=== PATIENT | female | born 1950 | race Caucasian/White ===

== ENCOUNTER 2017-12-27 17:23 | Inpatient (IN) ==
[2017-12-27 17:50] LABS: Bilirubin,Urine Negative (Negative); Blood,Urine Negative (Negative); Clarity,Urine Clear (Clear); Color,Urine Yellow (Yellow); Glucose,Urine (UA) Normal (Normal); Ketones,Urine Negative (Negative); Leukocyte Esterase,Urine Trace (Negative); Nitrite,Urine Negative (Negative); Protein,Urine Negative (Neg-Trace); Urobilinogen,Urine Normal (Normal)
[2017-12-27 17:51] LABS: Basophils # 0.1 K/mcL (0.0-0.2); Basophils % 0.5 %; Eosinophils # 0.1 K/mcL (0.0-0.6); Eosinophils % 0.9 %; Hematocrit 51.4 % (35.3-44.9); Hemoglobin 17.4 g/dL (11.5-15.4); Immature Granulocytes % 0.4 % (0-4); Lymphocytes # 3.1 K/mcL (0.6-4.6); Lymphocytes % 27.7 %; Mean Corpuscular HGB Conc 33.9 g/dL (31.6-35.5); Mean Corpuscular Hemoglobin 31.8 pg (28.0-33.3); Mean Corpuscular Volume 93.8 fL (83.0-100.0); Mean Platelet Volume 10.7 fL (9.4-12.4); Monocytes % 8.9 %; Neutrophils # 6.8 K/mcL (1.6-8.9); Platelet Count 258 K/mcL (140-400); Red Blood Count 5.48 M/mcL (3.82-4.97); Red Cell Distribution Width 15.2 % (11.5-14.5); Segmented Neutrophils % 61.6 %
[2017-12-27 17:53] LABS: Bacteria,Urine None Seen per hpf (None-Few); Hyaline Casts,Urine None Seen per lpf (None-Few); RBC,Urine 0-3 per hpf (0-3); Squamous Epithelial Cell,Urine Many per lpf (None-Few); WBC,Urine 0-3 per hpf (0-3)
[2017-12-27 17:56] LABS: Prothrombin Time 10.7 Seconds (9.4-12.1)
[2017-12-27 17:58] LABS: Activated Partial Thrombo Time 35.7 Seconds (26.0-36.0)
--- NOTE | 2017-12-27 18:03 | Emergency Department Note ---
Disposition Clinical Impression: Cerebrovascular accident Qualifiers: CVA mechanism: unspecified Qualified Code(s): I63.9 - Cerebral infarction, unspecified Disposition: Admitted As Inpatient Condition: Good Forms: ED Satisfaction Letter Time of Disposition: 18:17 General Adult HPI - General Chief complaint: ED Neuro Symptoms/Deficit Stated complaint: Stroke symtoms Time Seen by Provider: 12/27/17 17:26 Source: patient, family Mode of arrival: ambulatory Limitations: no limitations Nursing Notes Reviewed: Yes Vital Signs Reviewed: Yes - History of Present Illness HPI Narrative: Patient presents to the ED in with the chief complaint of a stroke. 48 hours ago the patient started developing expressive aphasia and a pressure in her bilateral temples. Saw her primary care physician who ordered an outpatient MRI. Patient went to MRI today and got sent over for an acute CVA. No previous history of CVA. No history of A. fib. Is not on any anticoagulants, aspirin or Plavix. She does have one stent in her heart and was on aspirin previously, but was discontinued one year ago by her physician. She does smoke. States that she does not have any numbness or weakness in her arms or legs. No difficulty walking. Chest chronic dizziness from vertigo and no change from this. States she feels okay otherwise. She is just having a lot of trouble getting her words out. Pain Scale: 0 - Related Data Home Medications Medication Instructions Recorded Confirmed Albuterol Sulfate 2.5 mg IH TID PRN 08/31/17 08/31/17 Amlodipine Besylate 5 mg PO DAILY 08/31/17 08/31/17 Aspirin 81 mg PO DAILY 08/31/17 08/31/17 Cyclobenzaprine HCl 5 mg PO BID 08/31/17 08/31/17 Lisinopril 20 mg PO BID 08/31/17 08/31/17 Metoprolol Tartrate 50 mg PO BID 08/31/17 08/31/17 Symbicort 160/4.5 4.5 mcg IH BID 08/31/17 08/31/17 Previous Rx's Medication Instructions Recorded Clindamycin [Cleocin] 150 mg PO Q6HR #7 capsule 08/31/17 Ibuprofen [Motrin] 600 mg PO Q8HR #20 tab 08/31/17 OxyCODONE Immed Rel [Roxicodone 5 5 mg PO Q4HR PRN 5 Days #20 tablet 08/31/17 MG] Allergies Allergy/AdvReac Type Severity Reaction Status Date / Time No Known Allergies Allergy Verified 08/25/17 09:26 Review of Systems: As reviewed in the HPI. All other systems reviewed are negative or normal. Past Medical History - Past Medical History Attestation: Yes The following information was validated with the patient. Source: patient Medical history: Reports: arthritis, CHF, COPD, CVA, hypertension, myocardial infarction Psychiatric history: Reports: anxiety - Social History Smoking Status: Current every day smoker Smokeless Tobacco Status: No Alcohol use: Reports: none Drug use: Reports: none Physical Exam CONSTITUTIONAL: [well appearing, alert and in no acute distress] EYES: [EOMI, clear conjunctiva, PERRLA] HENT: [Normocephalic, atraumatic, moist mucus membranes, normal oropharynx] NECK: [normal inspection, full ROM, trachea midline, no obvious swelling] PULMONARY: [normal lung sounds bilaterally, normal chest rise and fall, no respiratory distress or stridor, no wheezes, no rales, no rhonchi CARDIOVASCULAR: [regular rate, regular rhythm, normal heart sounds, no murmurs, distal extremities are warm and well perfused] GASTROINSTESTINAL: [soft, non-tender, non-rigid, non-distended, no guarding, no rebound, normal bowel sounds] GENITOURINARY/RECTAL: [deferred] NEUROLOGIC: [Alert, oriented x3, mild expressive aphasia, normal gait, moves all extremities] EXTREMITIES: [Normal inspection, full ROM, no tenderness, no pedal edema, normal capillary refill] MUSCULOSKELETAL: [no gross deformities, atraumatic] SKIN: [No cyanosis, no diaphoresis, normal color, warm, no rash] PSYCHIATRIC: [normal mood and affect] - General Limitations: no limitations General appearance: alert, in no apparent distress Course Course Narrative: Patient presenting from outpatient MRI with a CVA. Symptoms were 48 hours ago. We will get labs and admit. - Reevaluation(s) Reevaluation #1: Patient admitted to the hospitalist service. Aspirin administered. Vital Signs Temperature 98.4 F 12/27/17 17:33 Pulse Rate 79 12/27/17 17:33 Respiratory Rate 18 12/27/17 17:33 Blood Pressure 209/103 12/27/17 17:33 O2 Sat by Pulse Oximetry 100 12/27/17 17:33 Temperature 98.4 F 12/27/17 17:33 Pulse Rate 79 12/27/17 17:33 Respiratory Rate 18 12/27/17 17:33 Blood Pressure 209/103 12/27/17 17:33 O2 Sat by Pulse Oximetry 100 12/27/17 17:33 Oxygen Delivery Oxygen Delivery Room Air Medical Decision Making - Medical Records Medical records reviewed: Yes I reviewed the patient's medical records. - Lab Data Lab results reviewed: Yes I reviewed the patient's lab results. Result diagrams: 12/27/17 17:33 Lab Results 12/27/17 12/27/17 12/27/17 Range/Units 17:33 17:33 17:33 WBC 11.1 (4.3-11.1) K/mcL RBC 5.48 H (3.82-4.97) M/mcL Hgb 17.4 H (11.5-15.4) g/dL Hct 51.4 H (35.3-44.9) % MCV 93.8 (83.0-100.0) fL MCH 31.8 (28.0-33.3) pg MCHC 33.9 (31.6-35.5) g/dL RDW 15.2 H (11.5-14.5) % Plt Count 258 (140-400) K/mcL MPV 10.7 (9.4-12.4) fL Immature Gran % 0.4 (0-4) % Seg Neutrophils % 61.6 % Lymphocytes % 27.7 % Monocytes % 8.9 % Eosinophils % 0.9 % Basophils % 0.5 % Neutrophils # 6.8 (1.6-8.9) K/mcL Lymphocytes # 3.1 (0.6-4.6) K/mcL Monocytes # 1.0 (0.0-1.3) K/mcL Eosinophils # 0.1 (0.0-0.6) K/mcL Basophils # 0.1 (0.0-0.2) K/mcL PT 10.7 (9.4-12.1) Seconds INR 1.0 APTT 35.7 (26.0-36.0) Seconds Urine Color Yellow (Yellow) Urine Clarity Clear (Clear) Urine pH 7.0 (5.0-8.0) pH Units Ur Specific [place] 1.010 (1.010-1.025) Urine Protein Negative (Neg-Trace) mg/dL Urine Glucose (UA) Normal (Normal) mg/dL Urine Ketones Negative (Negative) mg/dL Urine Blood Negative (Negative) Urine Nitrite Negative (Negative) Urine Bilirubin Negative (Negative) Urine Urobilinogen Normal (Normal) mg/dL Ur Leukocyte Esterase Trace H (Negative) Urine Microscopic RBC 0-3 (0-3) per hpf Urine Microscopic WBC 0-3 (0-3) per hpf Ur Squamous Epith Cells Many H (None-Few) per lpf Urine Bacteria None Seen (None-Few) per hpf Hyaline Casts None Seen (None-Few) per lpf Ur Culture Indicated? NO. A (NO) - Radiology Data Radiology results reviewed: Yes I reviewed the patient's radiology results. - EKG Data EKG #1 EKG attestation: Yes I reviewed and interpreted this EKG. EKG results narrative: Sinus rhythm, rate 75, normal intervals, left axis deviation, no acute ischemic changes
[2017-12-27] MEDS ORDERED: Aspirin 81 MG TAB.CHEW PO ONE (18:16)
[2017-12-27 18:17] LABS: BUN/Creatinine Ratio 17 (6-26); Blood Urea Nitrogen 10 mg/dL (8-23); Calcium 10.1 mg/dL (8.6-10.3); Carbon Dioxide 29 mEq/L (23-29); Chloride 101 mEq/L (98-107); Glucose 89 mg/dL (70-105); Osmolality,Calculated 287 (280-300); Sodium 139 mEq/L (136-145); Troponin I < 0.03 ng/mL (< 0.04); eGFR For Non-African Americans > 60 (> 60)
--- NOTE | 2017-12-27 18:39 | Emergency Department Note ---
Disposition Clinical Impression: Cerebrovascular accident Qualifiers: CVA mechanism: unspecified Qualified Code(s): I63.9 - Cerebral infarction, unspecified Disposition: Admitted As Inpatient Condition: Good Referrals: Sabiha Rivera MD [Primary Care Provider] - Forms: ED Satisfaction Letter General Adult HPI - General Chief complaint: ED Neuro Symptoms/Deficit Stated complaint: Stroke symtoms Time Seen by Provider: 12/27/17 17:26 Source: patient, family Mode of arrival: ambulatory Limitations: no limitations - History of Present Illness Pain Scale: 0 - Related Data Home Medications Medication Instructions Recorded Confirmed Albuterol Sulfate [Proair Hfa] 1 puff IH TID PRN #0 08/31/17 12/27/17 Aspirin Enteric Coated [Aspirin EC] 81 mg PO DAILY #0 08/31/17 12/27/17 Budesonide/Formoterol 160/4.5 2 puff IH BIDR #0 08/31/17 12/27/17 [Symbicort 160/4.5] Lisinopril [Zestril] 20 mg PO BID #0 08/31/17 12/27/17 Metoprolol Tartrate [Lopressor] 50 mg PO BID #0 08/31/17 12/27/17 amLODIPine [Norvasc] 5 mg PO DAILY #0 08/31/17 12/27/17 HYDROcodone/Acet 10/325 mg [Iaeger 1 tab PO Q6HR PRN 12/27/17 12/27/17 10-325 mg] Allergies Allergy/AdvReac Type Severity Reaction Status Date / Time No Known Allergies Allergy Verified 08/25/17 09:26 Past Medical History - Past Medical History Medical history: Reports: arthritis, CHF, COPD, CVA, hypertension, myocardial infarction Psychiatric history: Reports: anxiety - Social History Smoking Status: Current every day smoker Smokeless Tobacco Status: No Alcohol use: Reports: none Drug use: Reports: none Physical Exam - General Limitations: no limitations General appearance: alert, in no apparent distress Course Vital Signs Temperature 98.4 F 12/27/17 17:33 Pulse Rate 79 12/27/17 17:33 Respiratory Rate 18 12/27/17 17:33 Blood Pressure 209/103 12/27/17 17:33 O2 Sat by Pulse Oximetry 100 12/27/17 17:33 Temperature 98.4 F 12/27/17 17:33 Pulse Rate 78 12/27/17 19:09 Respiratory Rate 20 12/27/17 19:09 Blood Pressure 195/106 12/27/17 19:09 O2 Sat by Pulse Oximetry 94 12/27/17 19:09 Oxygen Delivery Oxygen Delivery Room Air Medical Decision Making - Lab Data Result diagrams: 12/27/17 17:33 12/27/17 17:33 Lab Results 12/27/17 12/27/17 12/27/17 Range/Units 17:33 17:33 17:33 WBC 11.1 (4.3-11.1) K/mcL RBC 5.48 H (3.82-4.97) M/mcL Hgb 17.4 H (11.5-15.4) g/dL Hct 51.4 H (35.3-44.9) % MCV 93.8 (83.0-100.0) fL MCH 31.8 (28.0-33.3) pg MCHC 33.9 (31.6-35.5) g/dL RDW 15.2 H (11.5-14.5) % Plt Count 258 (140-400) K/mcL MPV 10.7 (9.4-12.4) fL Immature Gran % 0.4 (0-4) % Seg Neutrophils % 61.6 % Lymphocytes % 27.7 % Monocytes % 8.9 % Eosinophils % 0.9 % Basophils % 0.5 % Neutrophils # 6.8 (1.6-8.9) K/mcL Lymphocytes # 3.1 (0.6-4.6) K/mcL Monocytes # 1.0 (0.0-1.3) K/mcL Eosinophils # 0.1 (0.0-0.6) K/mcL Basophils # 0.1 (0.0-0.2) K/mcL PT 10.7 (9.4-12.1) Seconds INR 1.0 APTT 35.7 (26.0-36.0) Seconds Sodium 139 (136-145) mEq/L Potassium 4.0 (3.5-5.1) mEq/L Chloride 101 (98-107) mEq/L Carbon Dioxide 29 (23-29) mEq/L BUN 10 (8-23) mg/dL Creatinine 0.58 L (0.60-1.20) mg/dL Est GFR ( Amer) > 60 (> 60) Est GFR (Non-Af Amer) > 60 (> 60) BUN/Creatinine Ratio 17 (6-26) Glucose 89 (70-105) mg/dL Calculated Osmolality 287 (280-300) Calcium 10.1 (8.6-10.3) mg/dL Troponin I < 0.03 (< 0.04) ng/mL Urine Color (Yellow) Urine Clarity (Clear) Urine pH (5.0-8.0) pH Units Ur Specific [place] (1.010-1.025) Urine Protein (Neg-Trace) mg/dL Urine Glucose (UA) (Normal) mg/dL Urine Ketones (Negative) mg/dL Urine Blood (Negative) Urine Nitrite (Negative) Urine Bilirubin (Negative) Urine Urobilinogen (Normal) mg/dL Ur Leukocyte Esterase (Negative) Urine Microscopic RBC (0-3) per hpf Urine Microscopic WBC (0-3) per hpf Ur Squamous Epith Cells (None-Few) per lpf Urine Bacteria (None-Few) per hpf Hyaline Casts (None-Few) per lpf Ur Culture Indicated? (NO) 12/27/17 Range/Units 17:33 WBC (4.3-11.1) K/mcL RBC (3.82-4.97) M/mcL Hgb (11.5-15.4) g/dL Hct (35.3-44.9) % MCV (83.0-100.0) fL MCH (28.0-33.3) pg MCHC (31.6-35.5) g/dL RDW (11.5-14.5) % Plt Count (140-400) K/mcL MPV (9.4-12.4) fL Immature Gran % (0-4) % Seg Neutrophils % % Lymphocytes % % Monocytes % % Eosinophils % % Basophils % % Neutrophils # (1.6-8.9) K/mcL Lymphocytes # (0.6-4.6) K/mcL Monocytes # (0.0-1.3) K/mcL Eosinophils # (0.0-0.6) K/mcL Basophils # (0.0-0.2) K/mcL PT (9.4-12.1) Seconds INR APTT (26.0-36.0) Seconds Sodium (136-145) mEq/L Potassium (3.5-5.1) mEq/L Chloride (98-107) mEq/L Carbon Dioxide (23-29) mEq/L BUN (8-23) mg/dL Creatinine (0.60-1.20) mg/dL Est GFR ( Amer) (> 60) Est GFR (Non-Af Amer) (> 60) BUN/Creatinine Ratio (6-26) Glucose (70-105) mg/dL Calculated Osmolality (280-300) Calcium (8.6-10.3) mg/dL Troponin I (< 0.04) ng/mL Urine Color Yellow (Yellow) Urine Clarity Clear (Clear) Urine pH 7.0 (5.0-8.0) pH Units Ur Specific [place] 1.010 (1.010-1.025) Urine Protein Negative (Neg-Trace) mg/dL Urine Glucose (UA) Normal (Normal) mg/dL Urine Ketones Negative (Negative) mg/dL Urine Blood Negative (Negative) Urine Nitrite Negative (Negative) Urine Bilirubin Negative (Negative) Urine Urobilinogen Normal (Normal) mg/dL Ur Leukocyte Esterase Trace H (Negative) Urine Microscopic RBC 0-3 (0-3) per hpf Urine Microscopic WBC 0-3 (0-3) per hpf Ur Squamous Epith Cells Many H (None-Few) per lpf Urine Bacteria None Seen (None-Few) per hpf Hyaline Casts None Seen (None-Few) per lpf Ur Culture Indicated? NO. A (NO) Attestation Statement - Attestation Attestation: I examined this patient and my medical decision-making was reviewed with the Resident Physician. I agree with the documented findings, disposition and treatment plan as described except to the extent set forth below. 67 year old anabella prsents to the ED with coplants of stroke like symptoms that started on Tuesday. Kleber was at outpatient MRI that showed an acute infarct in the the left temporal/front lobe. WAs sent to the eD for evaluation and admission for CVA workup. Heather is currently asymptomatic and has been eating fried chicken since the event on tuesday. States she is aving some dificutly with retrieal of words. admitted to medicine
[2017-12-27] MEDS ORDERED: Naloxone 0.4 MG/ML INJ IVP PRN (20:07)
--- NOTE | 2017-12-27 21:37 | Internal Med History&Physical ---
<Rizwana Kwok - Last Filed: 12/28/17 01:27> Date of Encounter: 12/28/17 Time of Encounter: 21:33 Internal Medicine - H&P: HPI Chief complaint: Stroke Plans for Post Hospital Care: Home History of present illness: Ms. Sanon is a 67 year-old female with PMH of CAD, HTN, and COPD presenting to the ED for stroke from her PCPs office. She saw her PCP today for difficulty speaking that began Tuesday night; she reports experiencing intense pressure at her temples bilaterally lasting for 20 minutes before going away on its own. The bilateral temporal pressure has not occurred since then. Outpatient MRI revealed an acute infarct in the left temporal lobe and she was sent to the ED. She denies associated chest pain, dyspnea, diaphoresis, nausea, vomiting, abdominal pain, unilateral body weakness or paresthesia. She denies personal or family h/o DVT, PE, clotting disorders. She has 2 stents as a result of past WI. On presentation to the ED her blood pressure was 209/103, vital signs were otherwise unremarkable. EKG showed sinus rhythm, heart rate 75, and no ischemic changes. Initial troponin was negative and metabolic panel was unremarkable. Her CBC shows Hgb 17.5 which is baseline for this patient. Aspirin 324 mg was given in the ED. She was admitted to hospitalist service for further care and continued stroke workup. Past Med Surg Social Fam HX - Past Medical History Medical history: arthritis, CHF, COPD, CVA, hypertension, myocardial infarction Psychiatric history: anxiety - Social History Smoking Status: Current every day smoker Smokeless Tobacco Status: No Alcohol use: none Drug use: none - Family History Mother Name: Isabel Almazan Living Status: Age at : 56 Cause of : cancer Hx Family Cardiac Disorders: No Hx Family Respiratory Disorders: No Hx Family Cancer: Yes Hx Family Endocrine Disorder: No Father Living Status: Age at : 87 Cause of : Natural causes Hx Family Cancer: Yes (Esophageal) Internal Medicine - H&P: Meds Albuterol Sulfate [Proair Hfa] 1 puff IH TID PRN #0 08/31/17 [History] Aspirin Enteric Coated [Aspirin EC] 81 mg PO DAILY #0 08/31/17 [History] Budesonide/Formoterol 160/4.5 [Symbicort 160/4.5] 2 puff IH BIDR #0 08/31/17 [ History] Lisinopril [Zestril] 20 mg PO BID #0 08/31/17 [History] Metoprolol Tartrate [Lopressor] 50 mg PO BID #0 08/31/17 [History] amLODIPine [Norvasc] 5 mg PO DAILY #0 08/31/17 [History] HYDROcodone/Acet 10/325 mg [[place] 10-325 mg] 1 tab PO Q6HR PRN 12/27/17 [History ] 3 Allergy/AdvReac Type Severity Reaction Status Date / Time No Known Allergies Allergy Verified 08/25/17 09:26 All Systems PM: A 10-system review of systems was performed and is negative for pertinent findings except as documented above in the HPI. - Constitutional Constitutional: as per HPI, no chills, no fever(s) - Cardiovascular Cardiovascular ROS IM: as per HPI, no irregular heart rhythm, no lightheadedness , no palpitations - Respiratory Respiratory: as per HPI - Gastrointestinal Gastrointestinal: as per HPI - Musculoskeletal Musculoskeletal ROS IM: as per HPI, no muscle weakness, no numbness - Neurological Neurological ROS: as per HPI - Constitutional Vitals: Temp Pulse Resp BP Pulse Ox 98.4 F 67 18 184/103 94 12/27/17 17:33 12/27/17 21:05 12/27/17 21:05 12/27/17 21:05 12/27/17 19:09 General appearance: Present: cooperative, pleasant, no acute distress, answers questions appropriately Exam: See below - Head Head exam: Present: atraumatic, normocephalic - Eye Eye exam: Present: EOMI, normal appearance, PERRL, sclera anicteric Pupils: Present: PERRL - Neck Neck exam general surgery: Present: full ROM, supple, trachea midline - Respiratory Respiratory exam: Present: decreased breath sounds (bilaterally, bases), CTAB. Absent: rales, respiratory distress, rhonchi, wheezes, tachypnea - Cardiovascular Cardiovascular exam: Present: RRR, +S1, +S2. Absent: diastolic murmur, gallop, rubs, systolic murmur - GI/Abdominal GI/Abdominal exam: Present: normal bowel sounds, soft, no peritoneal signs. Absent: distended, rebound, rigid, tenderness - Extremities Exam Extremities exam: Present: normal inspection, warm. Absent: cyanotic, pedal edema - Neurological Exam Neurological exam: Present: alert, CN II-XII intact (grossly), normal gait, oriented X3, no focal deficits, strengths equal and symetr throughout, speech deficit (expressive aphasia). Absent: facial droop - Psychiatric Psychiatric exam: Present: normal affect, normal mood - Skin Skin exam: Present: dry, intact, warm. Absent: cyanosis Internal Med - H&P Results - Labs CBC & Chem 7: 12/27/17 17:33 12/27/17 17:33 - Assessment and plan (1) Cerebrovascular accident Current Visit: Yes Status: Acute Assessment and plan: BP on arrival 209/103 Continuous school lunch monitor Continue home BP meds for now Will start Lipitor 20 mg tonight, consider dose change based on results of morning CMP and lipid panel Trend troponins x2 Echocardiogram ordered Bilateral carotid ultrasound ordered Consult to neurology placed Consults to PT, OT, and speech therapy placed Qualifiers: CVA mechanism: unspecified Qualified Code(s): I63.9 - Cerebral infarction, unspecified (2) Hypertension Current Visit: Yes Status: Chronic Assessment and plan: BP on arrival 209/103 Goal SBP <180 mmHg May require hydralazine 5mg Q6H PRN overnight to keep at goal Continuous cardiac monitoring Continue home meds lisinopril, amlodipine, and metoprolol tartrate at current doses for now Qualifiers: Hypertension type: essential hypertension Qualified Code(s): I10 - Essential (primary) hypertension (3) Tobacco abuse disorder Current Visit: Yes Status: Acute Assessment and plan: Smoking cessation encouraged (4) COPD (chronic obstructive pulmonary disease) Current Visit: Yes Status: Acute Assessment and plan: Saturating well on room air Continue symbicort and albuterol inhalers Qualifiers: COPD type: unspecified COPD Qualified Code(s): J44.9 - Chronic obstructive pulmonary disease, unspecified (5) DVT prophylaxis Current Visit: Yes Status: Acute Assessment and plan: Heparin 5,000 units SubQ Q12H (6) Coronary artery disease Current Visit: Yes Status: Acute Assessment and plan: Cardiac stent of LAD and left circumflex coronary arteries Not previously on statin due to h/o EtOH abuse, pt no longer drinks EtOH Check lipid panel in morning Check liver function on morning CMP Start lipitor 20 mg tonight, adjust based on morning lab results Qualifiers: Coronary Disease-Associated Artery/Lesion type: [place] artery [place] vs. transplanted heart: [place] heart Associated angina: angina presence unspecified Qualified Code(s): I25.10 - Atherosclerotic heart disease of [place] coronary artery without angina pectoris - Time Spent With Patient Total time spent is greater than 50% in coordination of care (as documented) at patient's floor/unit and/or counseling patient: <Harry Ramirez - Last Filed: 12/28/17 06:27> Date of Encounter: 12/28/17 Time of Encounter: 00:15 - Constitutional Constitutional: no fever(s) - EENT Eyes: no blurry vision, no change in vision Ears: no tinnitus Nose, mouth and throat: no sinus pressure, no sore throat - Cardiovascular Cardiovascular ROS IM: no chest pain, no dyspnea, no dyspnea on exertion - Respiratory Respiratory: no cough, no chest congestion, no excessive phlegm production - Gastrointestinal Gastrointestinal: no diarrhea, no hematemesis, no hematochezia, no melena, no vomiting - Genitourinary Genitourinary: no dysuria, no flank pain, no hematuria - Musculoskeletal Musculoskeletal ROS IM: no arthralgias, no back pain - Integumentary Integumentary IM: no rash - Neurological Neurological ROS: abnormal speech, no dizziness, no focal weakness, no frequent falls, no headache(s), no vertigo, no weakness - Psychiatric Psychiatric: no anxiety, no depression - Endocrine Endocrine IM: no polydipsia, no polyuria - Allergic/Immunologic Allergic/Immunologic: no wheezing, no GI upset with certain foods - Constitutional Vitals: Temp Pulse Resp BP Pulse Ox 98.1 F 60 16 169/98 94 12/28/17 04:15 12/28/17 04:15 12/28/17 04:15 12/28/17 04:15 12/28/17 04:15 General appearance: Present: cooperative, pleasant, no acute distress Exam: patient with some expressive aphasia; otherwise no acute distress - Head Head exam: Present: normal inspection - Eye Eye exam: Present: EOMI, PERRL. Absent: scleral icterus Pupils: Present: normal accommodation - ENT ENT exam: Present: mucous membranes dry, normal exam, normal oropharynx - Neck Neck exam general surgery: Present: full ROM, supple. Absent: tenderness, nuchal rigidity, thyromegaly - Expanded Neck Exam Neck exam: Absent: carotid bruit - Respiratory Respiratory exam: Present: CTAB. Absent: rales, rhonchi, wheezes - Cardiovascular Cardiovascular exam: Present: RRR, +S1, +S2. Absent: diastolic murmur, systolic murmur - GI/Abdominal GI/Abdominal exam: Present: normal bowel sounds, soft. Absent: hepatomegaly, splenomegaly, tenderness - Extremities Exam Extremities exam: Present: warm, radial pulses palpable and symmetrical. Absent : pedal edema, tenderness - Back Exam Back exam: Absent: CVA tenderness (L), CVA tenderness (R) - Neurological Exam Neurological exam: Present: alert, oriented X3, no focal deficits, strengths equal and symetr throughout, speech deficit (expressive aphasia) - Psychiatric Psychiatric exam: Present: normal affect, normal mood - Skin Skin exam: Present: dry, intact, warm Internal Med - H&P Results - Labs CBC & Chem 7: 12/27/17 17:33 12/28/17 05:11 Labs: BMP 12/28/17 05:11 Sodium 140 Potassium 4.7 Chloride 105 Carbon Dioxide 29 BUN 37 H Creatinine 1.15 Glucose 150 H Calcium 9.4 Cardiac Enzymes 12/27/17 12/28/17 Range/Units 22:57 05:11 Troponin I < 0.03 0.03 (< 0.04) ng/mL Liver Function 12/28/17 Range/Units 05:11 Total Bilirubin 0.4 (0.3-1.0) mg/dL AST 9 L (13-39) Units/L ALT 12 (7-52) Units/L Alkaline Phosphatase 79 (34-104) Units/L Albumin 3.4 L (3.5-5.7) g/dL - Assessment and plan (1) Cerebrovascular accident Current Visit: Yes Status: Acute Qualifiers: CVA mechanism: unspecified Qualified Code(s): I63.9 - Cerebral infarction, unspecified (2) Hypertension Current Visit: Yes Status: Chronic Qualifiers: Hypertension type: essential hypertension Qualified Code(s): I10 - Essential (primary) hypertension (3) COPD (chronic obstructive pulmonary disease) Current Visit: Yes Status: Acute Qualifiers: COPD type: unspecified COPD Qualified Code(s): J44.9 - Chronic obstructive pulmonary disease, unspecified (4) Tobacco abuse disorder Current Visit: Yes Status: Acute (5) DVT prophylaxis Current Visit: Yes Status: Acute (6) Coronary artery disease Current Visit: Yes Status: Acute Qualifiers: Coronary Disease-Associated Artery/Lesion type: [place] artery [place] vs. transplanted heart: [place] heart Associated angina: angina presence unspecified Qualified Code(s): I25.10 - Atherosclerotic heart disease of [place] coronary artery without angina pectoris - Time Spent With Patient Total time spent is greater than 50% in coordination of care (as documented) at patient's floor/unit and/or counseling patient: - Attending Attestation I discussed the patient WASHOE, past medical history, review of systems, lab data , and imaging studies with Dr. Unger. I examined patient independently as well. Patient develops symptoms roughly 48 hours prior to presentation to the ER. She had outpatient MRI performed which confirmed stroke. She was therefore sent to the ER by her PCP. On exam presently, she has expressive aphasia with some limited intelligible speech. She has no other focal deficits. Blood pressure was rather elevated in the ER. We resumed her home BP medications and blood pressures are currently in acceptable range around 160- 180 systolic. We will proceed with neurologic workup including PT, OT, speech therapy consults, ECHO, carotid Doppler, lipid profile, and neurology consultation. Other than my comments above and documented physical exam findings, I agree with Dr. Unger's assessment and plan.
[2017-12-27] MEDS: Lisinopril 20 MG TABLET PO SCH (21:43)
[2017-12-27] MEDS: Budesonide/Formoterol 160/4.5 1 PUFF INH IH SCH (21:46)
[2017-12-28] MEDS: *HR* HYDROcodone/Acet 10/325 mg TABLET PO PRN (02:11)
[2017-12-28 06:10] LABS: Chol/HDL Ratio 2.6 (0-4.9)
[2017-12-28 06:11] LABS: Albumin 3.4 g/dL (3.5-5.7); Albumin/Globulin Ratio 1.1 (1.1-2.2); Bilirubin,Total 0.4 mg/dL (0.3-1.0); Calcium 9.4 mg/dL (8.6-10.3); Potassium 4.7 mEq/L (3.5-5.1); Total Protein 6.4 g/dL (6.4-8.9)
[2017-12-28 06:32] LABS: Hematocrit 46.4 % (35.3-44.9); Mean Corpuscular HGB Conc 33.6 g/dL (31.6-35.5); Mean Corpuscular Hemoglobin 30.8 pg (28.0-33.3); Mean Corpuscular Volume 91.7 fL (83.0-100.0); Mean Platelet Volume 10.7 fL (9.4-12.4); Platelet Count 231 K/mcL (140-400); Red Blood Count 5.06 M/mcL (3.82-4.97); Red Cell Distribution Width 14.9 % (11.5-14.5)
[2017-12-28] MEDS: *HR* Heparin 5,000 UNIT/ML VIAL SQ SCH ×2 (06:50→18:47)
[2017-12-28 06:53] LABS: Hemoglobin 15.6 g/dL (11.5-15.4)
[2017-12-28] MEDS: Budesonide/Formoterol 160/4.5 1 PUFF INH IH SCH ×2 (07:49→20:26)
[2017-12-28] MEDS: amLODIPine 5 MG TABLET PO SCH (08:00)
[2017-12-28] MEDS: Lisinopril 20 MG TABLET PO SCH ×2 (08:00→20:29)
[2017-12-28] MEDS: Aspirin Enteric Coated 81 MG Tablet PO SCH (08:00)
--- NOTE | 2017-12-28 10:23 | Neurology - Consult Note ---
<Irish Hinton N - Last Filed: 12/28/17 10:14> Date of Encounter: 12/28/17 Time of Encounter: 10:15 Assessment and Plan (1) Cerebrovascular accident Current Visit: Yes Status: Acute -Patient has a significant sized CVA of the left temporal lobe visible on MRI. The pattern is consistent with an MCA distribution and is likely embolic in nature -Patient is only experiencing mild expressive aphasia symptoms when speaking in sentences. Rest of neurological exam was negative for focal deficits -will f/u will telemetry, echo, and carotid dopplers -Added clopidogrel 75mg daily as patient had a CVA while on aspirin therapy alone -Increased statin dose to lipitor 40mg daily as her LFTs were within range and patient is no longer drinking alcohol -PT/OT/ST consults -Encourage smoking cessation Qualifiers: CVA mechanism: unspecified Qualified Code(s): I63.9 - Cerebral infarction, unspecified History of Present Illness Chief complaint: CVA HPI: Ms. Sanon is a 67 year old female with a history of CAD with stent placement who presented to [facility] for a stroke. on 12/26/17 the patient experienced difficulty with her speech. Describing it as trouble forming certain words, stating that she knows the word to say but can not vocalize it. She visited her PCP on 12/27/17 and an outpatient MRI was obtained which showed evidence of an acute infarct within the left temporal lobe, and a small infarct in the left frontal lobe. She was directed to visit the ED and was admitted for a stroke workup. Patient denies any history of previous strokes. She was on a daily aspirin, but not on a statin as she has a prior history of heavy drinking, she claims she quit drinking this past August. She is still smoking and states her intent to quit. After her stent placement she was on aspirin and plavix, but plavix was eventually discontinued. She denies any headaches, parasthesias, numbness, weakness, confusion, difficulty with comprehension, or visual changes. Past Med Surg Social Fam HX - Past Medical History Medical history: arthritis, CHF, COPD, CVA, hypertension, myocardial infarction Psychiatric history: anxiety - Past Surgical History Surgical History: other - Social History Smoking Status: Current every day smoker Packs per day: 1/2-1 ppd Smokeless Tobacco Status: No Alcohol use: none Drug use: none - Family History Mother Name: Isabel Almazan Living Status: Age at : 56 Cause of : cancer Hx Family Cardiac Disorders: No Hx Family Respiratory Disorders: No Hx Family Cancer: Yes Hx Family Endocrine Disorder: No Father Living Status: Age at : 87 Cause of : Natural causes Hx Family Cancer: Yes (Esophageal) Medications and Allergies Albuterol Sulfate [Proair Hfa] 1 puff IH TID PRN #0 08/31/17 [History] Aspirin Enteric Coated [Aspirin EC] 81 mg PO DAILY #0 08/31/17 [History] Budesonide/Formoterol 160/4.5 [Symbicort 160/4.5] 2 puff IH BIDR #0 08/31/17 [ History] Lisinopril [Zestril] 20 mg PO BID #0 08/31/17 [History] Metoprolol Tartrate [Lopressor] 50 mg PO BID #0 08/31/17 [History] amLODIPine [Norvasc] 5 mg PO DAILY #0 08/31/17 [History] HYDROcodone/Acet 10/325 mg [[place] 10-325 mg] 1 tab PO Q6HR PRN 12/27/17 [History ] 3 Allergy/AdvReac Type Severity Reaction Status Date / Time No Known Allergies Allergy Verified 08/25/17 09:26 All Systems: The remainder of the systems were reviewed and are negative - Constitutional Constitutional ROS IM: as per HPI Physical Examination - Vital Signs Vital Signs: Initial Vital Signs Temp Pulse Resp BP Pulse Ox 98.4 F 79 18 209/103 100 12/27/17 17:33 12/27/17 17:33 12/27/17 17:33 12/27/17 17:33 12/27/17 17:33 - Exam Exam: Constitutional: comfortable, no acute distressed, mild frustration when having speech difficulty Speech: mild expressive aphasia when speaking in sentences. Patient is able to comprehend speech and respond to questions appropriately. however she has trouble with word recall when speaking in longer sentences. She gets frustrated at this stating that she knows the word to say but is unable to vocalize it. Speech is otherwise fluent. Cranial Nerves: II-XII grossly intact. Upper extremities: sensation intact bilaterally throughout. Strength 5/5 bilaterally and symmetric. Finger to nose normal. no dysdiadochokinesia. No pronator drift. Biceps reflex 1+ bilaterally. Lower Extremities: sensation intact bilaterally. Strength is 5/5 bilaterally and symmetric. Normal heel to terry. patellar reflex is 2+ bilaterally. Results - Laboratory Findings CBC and BMP: 12/28/17 06:18 12/28/17 05:11 Abnormal lab findings: Abnormal lab results RBC 5.06 M/mcL (3.82-4.97) H 12/28/17 06:18 Hgb 15.6 g/dL (11.5-15.4) H D 12/28/17 06:18 Hct 46.4 % (35.3-44.9) H 12/28/17 06:18 RDW 14.9 % (11.5-14.5) H 12/28/17 06:18 BUN 37 mg/dL (8-23) H 12/28/17 05:11 Est GFR ( Amer) 57 (> 60) L 12/28/17 05:11 Est GFR (Non-Af Amer) 47 (> 60) L 12/28/17 05:11 BUN/Creatinine Ratio 32 (6-26) H 12/28/17 05:11 Glucose 150 mg/dL (70-105) H 12/28/17 05:11 Calculated Osmolality 302 (280-300) H 12/28/17 05:11 AST 9 Units/L (13-39) L 12/28/17 05:11 Albumin 3.4 g/dL (3.5-5.7) L 12/28/17 05:11 LDL Cholesterol, Calc 100 mg/dL (0-99) H 12/28/17 05:11 HDL Cholesterol 74 mg/dL (40-59) H 12/28/17 05:11 Ur Leukocyte Esterase Trace (Negative) H 12/27/17 17:33 Ur Squamous Epith Cells Many per lpf (None-Few) H 12/27/17 17:33 Ur Culture Indicated? NO. (NO) A 12/27/17 17:33 Consult Discharge Plan - Plan Referrals: Sabiha Rivera MD [Primary Care Provider] - <Ankur Cota I - Last Filed: 12/28/17 15:47> Date of Encounter: 12/28/17 Assessment and Plan (1) Cerebrovascular accident Current Visit: Yes Status: Acute Pt was seen and examined, my medical decision was reviewed with the Resident Physician, I agree with the documented findings, disposition and treatment plas as described except to the extent set forth below Patient was been admitted with the aphasia noted to have a left temporal infarct predominantly in the left MCA distribution considering cortical nature suspect embolic source suggest stroke workup including carotid duplex as well as echocardiogram and at the same time continue to monitor for any cardiac arrhythmias in the meantime continue on antiplatelet therapy. No significant focal motor neurological deficit she may benefit from speech therapy that could be done as an outpatient. Patient also having some emotional lability may benefit from addition of a tricyclic or low-dose SSRIs. Ankur Cota MD Qualifiers: CVA mechanism: unspecified Qualified Code(s): I63.9 - Cerebral infarction, unspecified History of Present Illness HPI: Ms. Sanon is a 67 year old female All Systems: The remainder of the systems were reviewed and are negative Physical Examination - Vital Signs Vital Signs: Initial Vital Signs Temp Pulse Resp BP Pulse Ox 98.4 F 79 18 209/103 100 12/27/17 17:33 12/27/17 17:33 12/27/17 17:33 12/27/17 17:33 12/27/17 17:33 - Exam Exam: GENERAL: Comfortable in no acute distress HEENT: Normal LUNGS: CTA HEART: RRR, S1 S2 Audible, no murmur EXTREMITIES: No Pedal edema. DETAILED NEUROLOGICAL EXAMINATION: MENTAL STATUS: Oriented to person, place, date and situation. Memory: knows the President, Aware of recent events Recent Memory Intact Attention is spent in consultation is normal Cranial Nerve Examination: CN - II: Visual Acuity, Field of Vision Normal, Fundus examination: No disk edema, Pupils- size shape reaction to light and accommodation: All normal. CN III, IV, : External ocular movements were intact, Pupils were reactive, Nodrooping of the eyelids CN V: Sensation over the face to light touch and pinprick all normal. Corneal reflexes not tested, jaw jerk normal. CN VII: No facial asymmetry, no flattening of nasolabial folds, no difficulty in closing the eyes, no loss of forehead wrinkles, no difficulty in eye-closure, frowning raising eyebrows. CNVIII: No significant hearing loss CN IX, X: Uvula centralized not deviated, Gag reflex: Not tested CN X1: Sternocleidomastoid, trapezius, normal or evidence of any weakness. CN X11: No Dysarthria, no wasting or fibrilation f tongue muscles, no deviation, tongue muscle strength normal. Motor examination: No hypertrophy, tone was normal, power grade 0-5 Upper limbs Proximal- No difficulty in lifting the arms above the head. Distal- No weakness in distal muscles On formal testing 5/5 all over Lower limbs On formal testing 5/5 all over Coordination: [id number] normal. Target pursuit normal finger tapping normal, Rapid alternating moment of wrist normal Sensory system: Superficial sensations- Touch normal. Pain- Pinprick, Temperature all normal, Deep sensation normal, Joint position sense normal. Cortical sensation, Tactile discrimination, localization and extinction all normal. Deep tendon reflexes. Symmetrical bilateral, No evidence of Babinski. No sign of meningeal irritation Gait Examination: Deferred Results - Laboratory Findings CBC and BMP: 12/28/17 06:18 12/28/17 05:11 Abnormal lab findings: Abnormal lab results RBC 5.06 M/mcL (3.82-4.97) H 12/28/17 06:18 Hgb 15.6 g/dL (11.5-15.4) H D 12/28/17 06:18 Hct 46.4 % (35.3-44.9) H 12/28/17 06:18 RDW 14.9 % (11.5-14.5) H 12/28/17 06:18 BUN 37 mg/dL (8-23) H 12/28/17 05:11 Est GFR ( Amer) 57 (> 60) L 12/28/17 05:11 Est GFR (Non-Af Amer) 47 (> 60) L 12/28/17 05:11 BUN/Creatinine Ratio 32 (6-26) H 12/28/17 05:11 Glucose 150 mg/dL (70-105) H 12/28/17 05:11 Calculated Osmolality 302 (280-300) H 12/28/17 05:11 AST 9 Units/L (13-39) L 12/28/17 05:11 Albumin 3.4 g/dL (3.5-5.7) L 12/28/17 05:11 LDL Cholesterol, Calc 100 mg/dL (0-99) H 12/28/17 05:11 HDL Cholesterol 74 mg/dL (40-59) H 12/28/17 05:11 Ur Leukocyte Esterase Trace (Negative) H 12/27/17 17:33 Ur Squamous Epith Cells Many per lpf (None-Few) H 12/27/17 17:33 Ur Culture Indicated? NO. (NO) A 12/27/17 17:33
--- NOTE | 2017-12-28 11:15 | Internal Med Progress Note ---
Hospitalist Progress Note - Encounter Date of Encounter: 12/28/17 Time of Encounter: 11:13 - Subjective Interval History: Patient seen and examined this morning. Admitted for stroke. Some speech difficulty. No other weakness or numbness. Denies other symptoms. - Exam Vitals: Temp Pulse Resp BP Pulse Ox 97.6 F 58 16 162/109 97 12/28/17 06:51 12/28/17 06:51 12/28/17 07:49 12/28/17 06:51 12/28/17 07:49 Exam: Gen: Resting comfortable in bed. No acute distress Respiratory exam: CTAB. no accessory muscle use, rales, rhonchi, wheezes Cardiovascular exam: RRR, +S1, +S2. no murmur, gallop, rubs. GI/Abdominal exam: Non-tender, Non-distended, normal bowel sounds, soft, no peritoneal signs. Extremities exam: full ROM, no pedal edema, warm, pulses palpable and symmetrical in both Upper and lower extremities. no calf tenderness, cyanotic Neurological exam: CN II-XII intact, AO X3. Mild dysarthria present. no pronater drift, facial droop, speech deficit. Skin exam: No skin rash, ulcer, purpura or ecchymosis. - Assessment and Plan (1) Cerebrovascular accident Current Visit: Yes Status: Acute (2) Hypertension Current Visit: Yes Status: Chronic (3) COPD (chronic obstructive pulmonary disease) Current Visit: Yes Status: Acute (4) Tobacco abuse disorder Current Visit: Yes Status: Acute (5) DVT prophylaxis Current Visit: Yes Status: Acute (6) Coronary artery disease Current Visit: Yes Status: Acute - Summary of Assessment and Plan Summary of Assessment and Plan: Cerebrovascular accident - MRI with stroke on left. Likely embolic - Appreciate neurology consult input. - c/w telemetry - f/u ECHO and carotid dopplers - Started on clopidogrel 75mg daily in addition to aspirin and Statin increased. - PT/OT/speech eval CAD - h/o Cardiac stent of LAD and left circumflex coronary arteries - Started on Lipitor. c/w home aspirin, BB HTN - Continued on home meds lisinopril, amlodipine, and metoprolol tartrate given past 48 hr after symptom onset Tobacco abuse - counselled on Smoking cessation h/o COPD c/w home symbicort and albuterol inhalers DVT prophylaxis - Heparin sc - Time Spent with Patient Total time spent is greater than 50% in coordination of care (as documented) at patient's floor/unit and/or counseling patient: Internal Medicine: Result - Labs CBC & Chem 7: 12/28/17 06:18 12/28/17 05:11 - ABG Interpretation ABG results: PT/INR, D-dimer PT 11.0 Seconds (9.4-12.1) 12/28/17 05:11 Consult Discharge Plan - Plan Referrals: Sabiha Rivera MD [Primary Care Provider] - (1) Cerebrovascular accident Qualifiers: CVA mechanism: unspecified Qualified Code(s): I63.9 - Cerebral infarction, unspecified (2) Hypertension Qualifiers: Hypertension type: essential hypertension Qualified Code(s): I10 - Essential (primary) hypertension (3) COPD (chronic obstructive pulmonary disease) Qualifiers: COPD type: unspecified COPD Qualified Code(s): J44.9 - Chronic obstructive pulmonary disease, unspecified (6) Coronary artery disease Qualifiers: Coronary Disease-Associated Artery/Lesion type: enterprise artery [place] vs. transplanted heart: enterprise heart Associated angina: angina presence unspecified Qualified Code(s): I25.10 - Atherosclerotic heart disease of enterprise coronary artery without angina pectoris
[2017-12-28] MEDS ORDERED: ALPRAZolam 0.25 MG TABLET PO ONE (12:11)
[2017-12-29] MEDS: *HR* Heparin 5,000 UNIT/ML VIAL SQ SCH ×2 (05:19→16:22)
[2017-12-29] MEDS: amLODIPine 5 MG TABLET PO SCH (07:57)
[2017-12-29] MEDS: Lisinopril 20 MG TABLET PO SCH (07:57)
[2017-12-29] MEDS: Aspirin Enteric Coated 81 MG Tablet PO SCH (07:58)
[2017-12-29] MEDS: Budesonide/Formoterol 160/4.5 1 PUFF INH IH SCH (08:44)
--- NOTE | 2017-12-29 10:04 | Neurology Progress Note ---
<Irish Hinton - Last Filed: 12/29/17 10:00> Date of Encounter: 12/29/17 Time of Encounter: 10:00 Assessment and Plan (1) Cerebrovascular accident Current Visit: Yes Status: Acute -Patient experienced a stroke of the left temporal lobe confirmed by MRI. -unable to obtain carotid dopplers or echocardiogram as patient refused yesterday -Will obtain studies today -on clopidogrel, ASA, and Statin -Patient wants to leave AMA today, strongly recommend that she be encouraged to stay until all workup is complete Qualifiers: CVA mechanism: unspecified Qualified Code(s): I63.9 - Cerebral infarction, unspecified Subjective Principal diagnosis: CVA Interval history: Patient seen and examined at bedside with the attending present. Patient continues to have mild expressive aphasia when speaking in sentences. Otherwise no new neurological deficits. She refused her echo and carotid doppler studies yesterday, but agrees to have them done today. However; she states that she will leave by 5pm today at the latest. The importance of a full workup was discussed with the patient and the possibility that it may require more time, but she is adamant that she leave by 5pm. Objective - Constitutional Vitals: Temp Pulse Resp BP Pulse Ox 98.1 F 62 16 169/97 98 12/29/17 07:05 12/29/17 07:05 12/29/17 08:44 12/29/17 07:05 12/29/17 08:44 Exam: Constitutional: comfortable, no acute distressed, mild frustration when having speech difficulty Speech: mild expressive aphasia when speaking in sentences. Patient is able to comprehend speech and respond to questions appropriately. however she has trouble with word recall when speaking in longer sentences. She gets frustrated at this stating that she knows the word to say but is unable to vocalize it. Speech is otherwise fluent. Cranial Nerves: II-XII grossly intact. Upper extremities: sensation intact bilaterally throughout. Strength 5/5 bilaterally and symmetric. Finger to nose normal. no dysdiadochokinesia. No pronator drift. Biceps reflex 1+ bilaterally. Lower Extremities: sensation intact bilaterally. Strength is 5/5 bilaterally and symmetric. Normal heel to terry. patellar reflex is 2+ bilaterally. Results - Laboratory Findings CBC and BMP: 12/28/17 06:18 12/28/17 05:11 Abnormal lab findings: Abnormal lab results RBC 5.06 M/mcL (3.82-4.97) H 12/28/17 06:18 Hgb 15.6 g/dL (11.5-15.4) H D 12/28/17 06:18 Hct 46.4 % (35.3-44.9) H 12/28/17 06:18 RDW 14.9 % (11.5-14.5) H 12/28/17 06:18 BUN 37 mg/dL (8-23) H 12/28/17 05:11 Est GFR ( Amer) 57 (> 60) L 12/28/17 05:11 Est GFR (Non-Af Amer) 47 (> 60) L 12/28/17 05:11 BUN/Creatinine Ratio 32 (6-26) H 12/28/17 05:11 Glucose 150 mg/dL (70-105) H 12/28/17 05:11 Calculated Osmolality 302 (280-300) H 12/28/17 05:11 AST 9 Units/L (13-39) L 12/28/17 05:11 Albumin 3.4 g/dL (3.5-5.7) L 12/28/17 05:11 LDL Cholesterol, Calc 100 mg/dL (0-99) H 12/28/17 05:11 HDL Cholesterol 74 mg/dL (40-59) H 12/28/17 05:11 Ur Leukocyte Esterase Trace (Negative) H 12/27/17 17:33 Ur Squamous Epith Cells Many per lpf (None-Few) H 12/27/17 17:33 Ur Culture Indicated? NO. (NO) A 12/27/17 17:33 Consult Discharge Plan - Plan Referrals: Sabiha Rivera MD [Primary Care Provider] - <Ankur Cota I - Last Filed: 12/29/17 12:37> Date of Encounter: 12/29/17 Assessment and Plan (1) Cerebrovascular accident Current Visit: Yes Status: Acute Pt was seen and examined, my medical decision was reviewed with the Resident Physician, I agree with the documented findings, disposition and treatment plas as described except to the extent set forth below Discussed with the patient in detail explained the importance of echocardiogram and carotid duplex in the context of her recent his stroke it is important that embolic source need to be excluded in particularly in her heart and the carotid she does agrees to get up studies done but need to be done before 5:00 otherwise she said that she would leave. Patient would need outpatient speech therapy as well as do not think that she would require any PT as she did not have any significant focal motor deficit Ankur Cota MD Qualifiers: CVA mechanism: unspecified Qualified Code(s): I63.9 - Cerebral infarction, unspecified Objective - Constitutional Vitals: Temp Pulse Resp BP Pulse Ox 98.1 F 62 16 169/97 98 12/29/17 07:05 12/29/17 07:05 12/29/17 08:44 12/29/17 07:05 12/29/17 08:44 Results - Laboratory Findings CBC and BMP: 12/28/17 06:18 12/28/17 05:11 Abnormal lab findings: Abnormal lab results RBC 5.06 M/mcL (3.82-4.97) H 12/28/17 06:18 Hgb 15.6 g/dL (11.5-15.4) H D 12/28/17 06:18 Hct 46.4 % (35.3-44.9) H 12/28/17 06:18 RDW 14.9 % (11.5-14.5) H 12/28/17 06:18 BUN 37 mg/dL (8-23) H 12/28/17 05:11 Est GFR ( Amer) 57 (> 60) L 12/28/17 05:11 Est GFR (Non-Af Amer) 47 (> 60) L 12/28/17 05:11 BUN/Creatinine Ratio 32 (6-26) H 12/28/17 05:11 Glucose 150 mg/dL (70-105) H 12/28/17 05:11 Calculated Osmolality 302 (280-300) H 12/28/17 05:11 AST 9 Units/L (13-39) L 12/28/17 05:11 Albumin 3.4 g/dL (3.5-5.7) L 12/28/17 05:11 LDL Cholesterol, Calc 100 mg/dL (0-99) H 12/28/17 05:11 HDL Cholesterol 74 mg/dL (40-59) H 12/28/17 05:11 Ur Leukocyte Esterase Trace (Negative) H 12/27/17 17:33 Ur Squamous Epith Cells Many per lpf (None-Few) H 12/27/17 17:33 Ur Culture Indicated? NO. (NO) A 12/27/17 17:33
--- NOTE | 2017-12-29 12:36 | Electrocardiograph Report ---
[address] [place], [place] [address] Test Date: 2017-12-27 Pat Name: Karol Sanon Department: [id number] Room: 2NE18 Gender: F [employer]ode Maker: : [id number] Requested By: Roshan Montes Order Number: [id number] Reading MD: Dorina Hoskins Measurements Intervals [place] Rate: 75 P: 67 ID: [id number] QRS: -17 QRSD: 104 T: 49 QT: 403 QTc: 451 Interpretive Statements Sinus rhythm Possible left atrial enlargement Incomplete right bundle branch block Left anterior fascicular block Electronically Signed On 12-29-2017 12:34:53 EDT by Dorina Hoskins
[2017-12-29] MEDS: *HR* HYDROcodone/Acet 10/325 mg TABLET PO PRN (16:23)
[2017-12-29 16:42] VITALS: BP 172/116
--- NOTE | 2017-12-29 17:29 | Discharge Summary ---
Date of Encounter: 12/29/17 Time of Encounter: 17:26 - Discharge Diagnosis (1) Cerebrovascular accident Priority: Primary Status: Acute Qualifiers: CVA mechanism: unspecified Qualified Code(s): I63.9 - Cerebral infarction, unspecified (2) Hypertension Priority: Secondary Status: Chronic Qualifiers: Hypertension type: essential hypertension Qualified Code(s): I10 - Essential (primary) hypertension (3) COPD (chronic obstructive pulmonary disease) Priority: Secondary Status: Acute Qualifiers: COPD type: unspecified COPD Qualified Code(s): J44.9 - Chronic obstructive pulmonary disease, unspecified (4) Tobacco abuse disorder Priority: Secondary Status: Acute (5) DVT prophylaxis Priority: Secondary Status: Acute (6) Coronary artery disease Priority: Secondary Status: Acute Qualifiers: Coronary Disease-Associated Artery/Lesion type: [place] artery [place] vs. transplanted heart: [place] heart Associated angina: angina presence unspecified Qualified Code(s): I25.10 - Atherosclerotic heart disease of [place] coronary artery without angina pectoris Hospital course: Ms. Sanon is a 67 year old female with PMHx of arthritis, CHF, COPD, HTN, CAD with stent placement was send from PCP as outpatient MRI showed acute Left frontal lobe stroke. Initially insistent to leave without workup for embolic stroke but later agreed. She had work up with unremarkable carotid doppler, no tele events, ECHO with EF of 55-60 with mod diastolic dysfunction, without any atrial thrombus or PFO. Was started on clopidogrel along with Aspirin. Statin dose also increased. Patient insistent on leaving today. Had PT eval and did not have any significant needs. She will need outpatient speech therapy. Discharge discussed with: patient, family, nurse, social work, case management - Time Spent with Patient Total time spent providing and/or coordinating discharge services: Greater than 30 minutes - Discharge Medications Prescriptions: Atorvastatin [Lipitor] 40 mg PO HS 30 Days #30 tablet Clopidogrel [Plavix] 75 mg PO DAILY 30 Days #30 tablet Home Medications: Albuterol Sulfate [Proair Hfa] 1 puff IH TID PRN #0 08/31/17 [History] Aspirin Enteric Coated [Aspirin EC] 81 mg PO DAILY #0 08/31/17 [History] Budesonide/Formoterol 160/4.5 [Symbicort 160/4.5] 2 puff IH BIDR #0 08/31/17 [ History] Lisinopril [Zestril] 20 mg PO BID #0 08/31/17 [History] Metoprolol Tartrate [Lopressor] 50 mg PO BID #0 08/31/17 [History] amLODIPine [Norvasc] 5 mg PO DAILY #0 08/31/17 [History] HYDROcodone/Acet 10/325 mg [[place] 10-325 mg] 1 tab PO Q6HR PRN 12/27/17 [History ] Atorvastatin [Lipitor] 40 mg PO HS 30 Days #30 tablet 12/29/17 [Rx] Clopidogrel [Plavix] 75 mg PO DAILY 30 Days #30 tablet 12/29/17 [Rx] Allergies/Adverse Reactions: 3 Allergy/AdvReac Type Severity Reaction Status Date / Time No Known Allergies Allergy Verified 08/25/17 09:26 Date of admission: 12/28/17 10:52 Primary care physician: Sabiha Rivera MD - Constitutional Vitals: Temp Pulse Resp BP Pulse Ox 98.2 F 62 16 172/116 96 12/29/17 16:37 12/29/17 16:37 12/29/17 16:37 12/29/17 16:37 12/29/17 16:37 General appearance: Present: cooperative, pleasant, no acute distress Exam: Gen: Resting comfortable in bed. No acute distress Respiratory exam: CTAB. no accessory muscle use, rales, rhonchi, wheezes Cardiovascular exam: RRR, +S1, +S2. no murmur, gallop, rubs. GI/Abdominal exam: Non-tender, Non-distended, normal bowel sounds, soft, no peritoneal signs. Extremities exam: full ROM, no pedal edema, warm, pulses palpable and symmetrical in both Upper and lower extremities. no calf tenderness, cyanotic Neurological exam: CN II-XII intact, AO X3. Mild dysarthria present. no pronater drift, facial droop, speech deficit. Skin exam: No skin rash, ulcer, purpura or ecchymosis. - Patient Status Disposition: Home, Self-Care Condition: Good - Discharge Instructions Follow Up With: Sabiha Rivera MD [Primary Care Provider] - Ankur Cota MD [Partnered Physician] - - Diet and Activity Activity: resume usual activities as tolerated
== END 2017-12-29 19:20 | disposition home or self-care (01) | DRG 65 ==
LOC: 2NENU 17:23 → EMEROOARM 17:23 → 2NENU 21:11 → SUATTDRO 12-28 10:52
PROVIDERS: ADMIT Family Medicine; ATTEND Internal Medicine

== ENCOUNTER 2019-01-04 07:11 | Observation (INO) ==
[2019-01-04] MEDS ORDERED: 0.9 % Sodium Chloride 1,000 ML IVC SCH (08:00)
[2019-01-04] MEDS ORDERED: Heparin 1,000 UNITS/500 mL 500 ML ONE (08:08)
[2019-01-04] MEDS ORDERED: 0.9 % Sodium Chloride 1,000 ML ONE (08:08)
[2019-01-04] MEDS ORDERED: Nitroglycerin 1,000 MCG/10 ML VIAL IV ONE (08:09)
[2019-01-04] MEDS ORDERED: *HR* Heparin 10,000 UNIT/10 ML VIAL ONE (08:09)
[2019-01-04] MEDS ORDERED: ISOVUE-370 200 ML INFUS..BTL ONE ×2 (08:09→08:13)
[2019-01-04] MEDS ORDERED: *HR* Midazolam HCl 2 MG/2 ML VIAL ONE (09:35)
[2019-01-04] MEDS ORDERED: Verapamil 5 MG/2 ML VIAL ONE (09:43)
[2019-01-04] MEDS ORDERED: Ondansetron 4 MG/2 ML VIAL IVP PRN (10:28)
[2019-01-04] MEDS ORDERED: Furosemide 20 MG TABLET PO PRN (10:35)
[2019-01-04] MEDS ORDERED: *HR* HYDROcodone/Acet 10/325 mg TABLET PO PRN (12:26)
[2019-01-04] MEDS: Acetaminophen 325 MG TABLET PO PRN (19:50)
[2019-01-04] MEDS: Budesonide/Formoterol 80/4.5 1 PUFF INH IH SCH (20:26)
[2019-01-04] MEDS: *HR* HYDROcodone/Acet 10/325 mg TABLET PO PRN (20:36)
[2019-01-05] MEDS: *HR* HYDROcodone/Acet 10/325 mg TABLET PO PRN ×2 (02:59→09:26)
[2019-01-05 04:54] LABS: Basophils # 0.1 K/mcL (0.0-0.2); Basophils % 0.8 %; Eosinophils # 0.2 K/mcL (0.0-0.6); Eosinophils % 2.9 %; Hematocrit 43.3 % (35.3-44.9); Immature Granulocytes % 0.2 % (0-4); Lymphocytes # 2.4 K/mcL (0.6-4.6); Lymphocytes % 36.1 %; Mean Corpuscular HGB Conc 33.9 g/dL (31.6-35.5); Mean Corpuscular Hemoglobin 31.6 pg (28.0-33.3); Mean Corpuscular Volume 93.1 fL (83.0-100.0); Mean Platelet Volume 11.2 fL (9.4-12.4); Monocytes # 0.8 K/mcL (0.0-1.3); Monocytes % 12.7 %; Neutrophils # 3.1 K/mcL (1.6-8.9); Platelet Count 240 K/mcL (140-400); Red Blood Count 4.65 M/mcL (3.82-4.97); Red Cell Distribution Width 15.3 % (11.5-14.5); Segmented Neutrophils % 47.3 %; White Blood Count 6.5 K/mcL (4.3-11.1)
[2019-01-05 04:55] LABS: Hemoglobin 14.7 g/dL (11.5-15.4)
[2019-01-05 05:14] LABS: BUN/Creatinine Ratio 14 (6-26); Blood Urea Nitrogen 7 mg/dL (8-23); Carbon Dioxide 24 mEq/L (23-29); Chloride 107 mEq/L (98-107); Glucose 88 mg/dL (70-105); Osmolality,Calculated 277 (280-300); Potassium 3.8 mEq/L (3.5-5.1); Sodium 135 mEq/L (136-145); eGFR For African Americans > 60 (> 60); eGFR For Non-African Americans > 60 (> 60)
[2019-01-05] MEDS: Budesonide/Formoterol 80/4.5 1 PUFF INH IH SCH (07:41)
[2019-01-05] MEDS: Acetaminophen 325 MG TABLET PO PRN (07:46)
[2019-01-05 07:56] VITALS: BP 172/84
[2019-01-05] MEDS ORDERED: Lisinopril 20 MG TABLET PO SCH (09:00)
[2019-01-05] MEDS ORDERED: Aspirin 81 MG TAB.CHEW PO SCH (09:00)
[2019-01-05] MEDS ORDERED: amLODIPine 5 MG TABLET PO SCH (09:00)
[2019-01-05] MEDS ORDERED: Budesonide/Formoterol 160/4.5 1 PUFF INH IH SCH (22:00)
== END 2019-01-05 11:48 | disposition home or self-care (01) ==
LOC: 2ANU 07:11 → INVDIALAB 07:11 → 2ANU 11:48
PROVIDERS: ADMIT Internal Medicine Cardiovascular Disease; ATTEND Internal Medicine Cardiovascular Disease

== ENCOUNTER 2019-04-10 06:12 | Inpatient (IN) ==
[~2019-04-10 06:12] MED LIST: Bacitracin 50,000 UNIT, Polymyxin B Sulfate 500,000 UNIT, Sodium Chloride IRRigation 1,... IR ONE
[2019-04-10] MEDS ORDERED: CeFAZolin Syr 2,000MG/20 ML 2,000 MG/20 ML SYRINGE IVPB ONE (06:33)
[2019-04-10] MEDS ORDERED: Albuterol 2.5 MG/3 ML NEBULIZER IH PRN (06:33)
[2019-04-10] MEDS ORDERED: Ringers Solution, Lactated 1,000 ML IVC SCH ×2 (06:45→12:38)
[2019-04-10] MEDS ORDERED: Ondansetron 4 MG/2 ML VIAL ONE (07:12)
[2019-04-10] MEDS ORDERED: Propofol 500 MG/50 ML INFUS..BTL ONE ×2 (07:12→08:50)
[2019-04-10] MEDS ORDERED: *HR* FentaNYL (PF) 100 MCG/2 ML VIAL ONE (07:12)
[2019-04-10] MEDS ORDERED: Lidocaine -MPF 2% 2 ML VIAL ONE (07:12)
[2019-04-10] MEDS ORDERED: Dexamethasone 4 MG/ML VIAL ONE (07:12)
[2019-04-10] MEDS ORDERED: *HR* Succinylcholine 200 MG/10 ML VIAL IVP ONE (07:12)
[2019-04-10] MEDS ORDERED: Lidocaine HCL 4 ML Topical Solution (Laryng-O-Jet Kit Sterile Pak) TP ONE (07:12)
[2019-04-10] MEDS ORDERED: *HR* Remifentanil 1 MG VIAL IVP ONE (07:27)
[2019-04-10] MEDS ORDERED: Ondansetron 4 MG/2 ML VIAL IVP ONE (07:40)
[2019-04-10] MEDS ORDERED: *HR* OxyCODONE Immed Rel 5 MG TABLET PO PRN (07:40)
[2019-04-10] MEDS ORDERED: Acetaminophen IV 1,000 MG/100 ML INFUS..BTL ONE (07:47)
[2019-04-10] MEDS: *HR* HYDROmorphone (PF) 1 MG/ML SYRINGE IVP PRN ×3 (10:47→11:00)
[2019-04-10] MEDS ORDERED: Acetaminophen 325 MG TABLET PO PRN (12:38)
[2019-04-10] MEDS ORDERED: *HR* HYDROcodone/Acet 5/325 mg TABLET PO PRN (12:38)
[2019-04-10] MEDS ORDERED: Nitroglycerin 0.4 MG TAB.SUBL SL PRN (12:38)
[2019-04-10] MEDS ORDERED: Ondansetron 4 MG/2 ML VIAL IVP PRN (12:38)
[2019-04-10] MEDS ORDERED: Naloxone 0.4 MG/ML INJ IVP PRN (12:38)
[2019-04-10] MEDS: *HR* OxyCODONE Immed Rel 5 MG TABLET PO PRN ×3 (13:26→21:14)
[2019-04-10] MEDS ORDERED: hydrALAZINE 10 MG TABLET PO ONE (14:56)
[2019-04-10] MEDS: Lisinopril 20 MG TABLET PO SCH (21:14)
[2019-04-11] MEDS: *HR* OxyCODONE Immed Rel 5 MG TABLET PO PRN ×2 (01:24→05:55)
[2019-04-11] MEDS ORDERED: Aspirin Enteric Coated 81 MG Tablet PO SCH (09:00)
[2019-04-11] MEDS: Lisinopril 20 MG TABLET PO SCH (09:33)
[2019-04-11 10:57] VITALS: BP 122/66
== END 2019-04-11 12:25 | disposition home or self-care (01) | DRG 472 ==
LOC: SAMDAY 06:12 → 3NENU 12:54
PROVIDERS: ADMIT Orthopaedic Surgery Orthopaedic Surgery of the Spine; ATTEND Orthopaedic Surgery Orthopaedic Surgery of the Spine

== ENCOUNTER 2020-10-10 02:56 | Observation (INO) ==
[2020-10-10 03:17] LABS: Basophils # 0.1 K/mcL (0.0-0.2); Basophils % 0.3 %; Eosinophils # 0.1 K/mcL (0.0-0.6); Eosinophils % 0.8 %; Hematocrit 46.1 % (35.3-44.9); Hemoglobin 15.6 g/dL (11.5-15.4); Immature Granulocytes % 0.4 % (0-4); Lymphocytes # 4.6 K/mcL (0.6-4.6); Lymphocytes % 27.1 %; Mean Corpuscular HGB Conc 33.8 g/dL (31.6-35.5); Mean Corpuscular Hemoglobin 31.3 pg (28.0-33.3); Mean Corpuscular Volume 92.6 fL (83.0-100.0); Mean Platelet Volume 10.7 fL (9.4-12.4); Monocytes # 1.4 K/mcL (0.0-1.3); Monocytes % 8.3 %; Neutrophils # 10.6 K/mcL (1.6-8.9); Platelet Count 345 K/mcL (140-400); Red Blood Count 4.98 M/mcL (3.82-4.97); Red Cell Distribution Width 15.2 % (11.5-14.5); Segmented Neutrophils % 63.1 %; White Blood Count 16.8 K/mcL (4.3-11.1)
[2020-10-10 03:38] LABS: BUN/Creatinine Ratio 17 (6-26); Blood Urea Nitrogen 10 mg/dL (8-23); Calcium 9.1 mg/dL (8.6-10.3); Carbon Dioxide 27 mEq/L (23-29); Chloride 101 mEq/L (98-107); Glucose 103 mg/dL (70-105); Magnesium 1.7 mg/dL (1.6-2.6); Osmolality,Calculated 281 (280-300); Potassium 4.1 mEq/L (3.5-5.1); Sodium 136 mEq/L (136-145); eGFR For African Americans > 60 (> 60); eGFR For Non-African Americans > 60 (> 60)
[2020-10-10 03:39] LABS: Troponin I < 0.03 ng/mL (< 0.04)
[2020-10-10] MEDS ORDERED: Ipratropium/Albuterol Neb 3 ML IH ONE (04:11)
[2020-10-10] MEDS ORDERED: hydrALAZINE 10 MG TABLET PO ONE (04:27)
[2020-10-10] MEDS ORDERED: Azithromycin 500 MG in D5% in Water 250 ML IVPB ONE (04:30)
[2020-10-10] MEDS ORDERED: Ondansetron 4 MG/2 ML VIAL IVP PRN (04:51)
[2020-10-10] MEDS ORDERED: Acetaminophen 325 MG TABLET PO PRN (04:51)
[2020-10-10] MEDS ORDERED: Naloxone 0.4 MG/ML INJ IVP PRN (04:51)
[2020-10-10 06:40] VITALS: PULSE 113; TEMP 98.6
[2020-10-10] MEDS: Ipratropium/Albuterol Neb 3 ML IH SCH ×2 (07:16→11:50)
[2020-10-10 07:22] VITALS: BP 162/89
[2020-10-10 08:36] LABS: Adenovirus Not Detected (Not Detect); Bordetella Pertussis Not Detected (Not Detect); Chlamydophila pneumoniae Not Detected (Not Detect); Coronavirus 229E Not Detected (Not Detect); Coronavirus HKU1 Not Detected (Not Detect); Coronavirus NL63 Not Detected (Not Detect); Coronavirus OC43 Not Detected (Not Detect); Human Metapneumovirus Not Detected (Not Detect); Human Rhinovirus/Enterovirus Not Detected (Not Detect); Influenza A Subtype 2009 H1 Not Detected (Not Detect); Influenza B Not Detected (Not Detect); Mycoplasma pneumoniae Not Detected (Not Detect); Parainfluenza Virus 1 Not Detected (Not Detect); Parainfluenza Virus 2 Not Detected (Not Detect); Parainfluenza Virus 3 Not Detected (Not Detect); Parainfluenza Virus 4 Not Detected (Not Detect); Respiratory Syncytial Virus Not Detected (Not Detect); SARS-CoV-2 Not Detected (Not Detect)
[2020-10-10 08:39] LABS: Bilirubin,Urine Negative (Negative); Blood,Urine Negative (Negative); Clarity,Urine Clear (Clear); Color,Urine Colorless (Yellow); Glucose,Urine (UA) Normal (Normal); Ketones,Urine Negative (Negative); Leukocyte Esterase,Urine Small (Negative); Nitrite,Urine Negative (Negative); Protein,Urine Negative (Neg-Trace); RBC,Urine 0-3 per hpf (0-3); Specific Gravity,Urine 1.005 (1.010-1.025); Squamous Epithelial Cell,Urine Few per hpf (None-Few); Urobilinogen,Urine Normal (Normal)
[2020-10-10] MEDS ORDERED: Furosemide 40 MG/4 ML VIAL IVP SCH (09:00)
[2020-10-10 11:45] VITALS: O2SAT 92
[2020-10-10] MEDS ORDERED: cefTRIAXone 1,000 MG in 0.9 % Sodium Chloride Mini Bag 100 ML IVPB SCH (18:00)
[2020-10-10] MEDS ORDERED: Azithromycin 500 MG in 0.9 % Sodium Chloride 250 ML IVPB SCH (18:00)
[2020-10-10] MEDS ORDERED: MethylPREDNISolone 40 MG/ML VIAL IVP SCH (18:00)
== END 2020-10-10 14:47 | disposition home or self-care (01) ==
LOC: CDU 02:56 → EMEROOARM 02:56 → SUATTDRO 04:40 → CDU 06:31
PROVIDERS: ADMIT Internal Medicine; ATTEND Family Medicine